=== PATIENT | female | born 1985 | race Caucasian/White ===

== ENCOUNTER 2016-12-27 09:41 | Emergency (ER) | payer MEDICAID ==
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
[2016-12-27 11:42] VITALS: BP 130/77; PULSE 70; RESP 14; TEMP 97.9; O2SAT 94
== END 2016-12-27 11:41 | disposition home or self-care (01) ==
PROC: 0HBRXZZ Excision of Toe Nail, External Approach (ICD-10-PCS; principal; 2016-12-27)
DX: S97.112A Crushing injury of left great toe, initial encounter (principal); S90.212A Contusion of left great toe with damage to nail, initial encounter; F17.200 Nicotine dependence, unspecified, uncomplicated; V03.10XA Pedestrian on foot injured in collision with car, pick-up truck or van in traffic accident, initial encounter; Y92.410 Unspecified street and highway as the place of occurrence of the external cause; Y93.89 Activity, other specified